=== PATIENT | male | born 1950 | race Caucasian/White ===

== ENCOUNTER 2021-12-08 09:57 | Outpatient (CLI) | payer MEDICARE ==
[2021-12-09 11:27] LABS: PTT 25.3 sec (22.0-33.0); Prothrombin Time 10.9 sec (9.5-12.1)
[2021-12-09 11:35] LABS: Anion Gap 13 mmol/L (10-20); BUN (Urea Nitrogen) 12 mg/dL (8.4-25.7); Calc. Creatinine Clearance 0 mL/min (70-130); Calcium 9.6 mg/dL (7.8-10.44); Carbon Dioxide 26 mmol/L (23-31); Chloride 104 mmol/L (98-107); Glucose 88 mg/dL (83-110); Potassium 4.4 mmol/L (3.5-5.1); Sodium 139 mmol/L (136-145)
[2021-12-09 11:41] LABS: Hemoglobin 15.3 g/dL (13.5-17.5); Mean Corpuscular HGB CONC 34.2 g/dL (32.0-36.0); Mean Corpuscular Hemoglobin 30.4 pg (27.0-33.0); Mean Corpuscular Volume 88.9 fl (81.2-95.1); Mean Platelet Volume 10.7 fl (7.4-10.4); Platelet Count 255 10x3/uL (150-450); RBC Distribution Width 12.3 % (11.5-14.5); Red Blood Cell (RBC) Count 5.04 10x6/uL (4.32-5.72); White Blood Cell (WBC) Count 10.7 10x3/uL (3.5-10.5)
[2021-12-09 19:35] LABS: SARS-CoV-2 PCR by NAA Not Detected (NotDetected)
== END 2021-12-08 09:58 | disposition home or self-care (01) ==
LOC: LABBT 09:57
PROVIDERS: ATTEND Urology
DX: Z01.818 Encounter for other preprocedural examination (principal); R97.20 Elevated prostate specific antigen [PSA]; I10 Essential (primary) hypertension; N40.0 Benign prostatic hyperplasia without lower urinary tract symptoms; R42 Dizziness and giddiness; Z20.822 Contact with and (suspected) exposure to COVID-19
CPT/HCPCS: 80048; 85027; 85610; 85730; U0003; U0005; 71046; 93005; 93010

== ENCOUNTER 2021-12-14 05:52 | Day surgery (SDC) | payer MEDICARE ==
[2021-12-12 11:21] VITALS: BMI 24.4
[2021-12-14] MEDS ORDERED: cefTRIAXone\\ROCEPHIN 1 GM VIAL ONE (06:46)
[2021-12-14] MEDS ORDERED: Levofloxacin 500 mg/D5W 100 ml Premix Bag ONE (06:46)
[2021-12-14] MEDS ORDERED: Sodium Chloride 0.9% 100 ML ONE (06:47)
[2021-12-14] MEDS ORDERED: Midazolam HCl 2 mg/2 ml Vial ONE (08:31)
[2021-12-14] MEDS ORDERED: Fentanyl 100 MCG/2 ML VIAL ONE (08:32)
[2021-12-14] MEDS ORDERED: Propofol 500 MG/50 ML VIAL ONE (08:32)
[2021-12-14] MEDS ORDERED: PHENYLEPHRINE-NS 100 MCG/ML 10 ML SYRINGE ONE (08:36)
[2021-12-14] MEDS ORDERED: Oxybutynin 5 MG TAB ONE (09:52)
[2021-12-14] MEDS ORDERED: Tamsulosin HCl 0.4 MG CAP ONE (09:52)
[2021-12-14] MEDS ORDERED: Phenazopyridine HCl 100 MG TAB ONE (09:52)
== END 2021-12-14 11:00 | disposition home or self-care (01) ==
LOC: SDC 05:52
PROVIDERS: ATTEND Urology
PROC: 0TJB8ZZ Inspection of Bladder, Via Natural or Artificial Opening Endoscopic (ICD-10-PCS; principal; 2021-12-14)
PROC: 0VB03ZX Excision of Prostate, Percutaneous Approach, Diagnostic (ICD-10-PCS; 2021-12-14)
DX: C61 Malignant neoplasm of prostate (principal); N40.1 Benign prostatic hyperplasia with lower urinary tract symptoms; R39.14 Feeling of incomplete bladder emptying; N13.8 Other obstructive and reflux uropathy; N32.89 Other specified disorders of bladder; R31.9 Hematuria, unspecified; E78.5 Hyperlipidemia, unspecified; I10 Essential (primary) hypertension; K21.9 Gastro-esophageal reflux disease without esophagitis; Z79.899 Other long term (current) drug therapy
CPT/HCPCS: G0416; J0696; J1956; J2250; J2704; J3010; J3490

== ENCOUNTER 2025-07-16 11:00 | Outpatient (CLI) | payer MEDICARE | END 2025-07-16 11:01 | disposition home or self-care (01) | LOC: SCSRAD 11:00 | PROVIDERS: ATTEND Family Medicine | DX: M79.642 Pain in left hand (principal) ==